=== PATIENT | male | born 1970 | race Caucasian/White ===

== ENCOUNTER 2017-03-06 02:58 | Emergency (ER) | payer SELFPAY ==
[2017-03-06] MEDS ORDERED: BACTRIM DS TAB1 EAC2 PO (03:29)
== END 2017-03-06 03:39 ==
LOC: EDMED 02:58
PROC: 0H9CXZZ Drainage of Left Upper Arm Skin, External Approach (ICD-10-PCS; principal; 2017-03-06)
PROC: 0H9BXZZ Drainage of Right Upper Arm Skin, External Approach (ICD-10-PCS; 2017-03-06)
DX: L02.414 Cutaneous abscess of left upper limb (principal); L02.413 Cutaneous abscess of right upper limb; Z23 Encounter for immunization; F17.200 Nicotine dependence, unspecified, uncomplicated